=== PATIENT | female | born 1955 | race Caucasian/White ===

== ENCOUNTER 2021-12-09 09:42 | Outpatient (CLI) | payer OTHER | END 2021-12-09 09:43 | disposition home or self-care (01) | LOC: BICMAMMO 09:42 | PROVIDERS: ATTEND Family Medicine | DX: N64.4 Mastodynia (principal); N95.8 Other specified menopausal and perimenopausal disorders; M85.89 Other specified disorders of bone density and structure, multiple sites | CPT/HCPCS: 76642; 77066; 77080; G0279 ==

== ENCOUNTER 2021-12-22 07:49 | Outpatient (CLI) | payer OTHER | END 2021-12-22 07:50 | disposition home or self-care (01) | LOC: CT 07:49 | PROVIDERS: ATTEND Family Medicine | DX: Z12.2 Encounter for screening for malignant neoplasm of respiratory organs (principal); Z71.6 Tobacco abuse counseling; R91.8 Other nonspecific abnormal finding of lung field; J43.2 Centrilobular emphysema; K76.0 Fatty (change of) liver, not elsewhere classified; Z72.0 Tobacco use | CPT/HCPCS: 71260; 82565 ==

== ENCOUNTER 2023-03-17 09:32 | Outpatient (CLI) | payer MEDICARE | END 2023-03-17 09:33 | disposition home or self-care (01) | LOC: BICMAMMO 09:32 | PROVIDERS: ATTEND Family Medicine | DX: Z12.31 Encounter for screening mammogram for malignant neoplasm of breast (principal); Z80.3 Family history of malignant neoplasm of breast | CPT/HCPCS: 77063; 77067 ==

== ENCOUNTER 2023-03-17 10:10 | Outpatient (CLI) | payer MEDICARE | END 2023-03-17 10:11 | disposition home or self-care (01) | LOC: BICCT 10:10 | PROVIDERS: ATTEND Family Medicine | DX: Z12.2 Encounter for screening for malignant neoplasm of respiratory organs (principal); F17.200 Nicotine dependence, unspecified, uncomplicated | CPT/HCPCS: 71271 ==

== ENCOUNTER 2023-12-28 10:52 | Outpatient (CLI) | payer MEDICARE | END 2023-12-28 10:53 | disposition home or self-care (01) | LOC: RAD 10:52 | PROVIDERS: ATTEND Internal Medicine | DX: R06.00 Dyspnea, unspecified (principal) | CPT/HCPCS: 71046 ==